=== PATIENT | female | born 1965 ===

== ENCOUNTER 2020-08-08 08:14 | Outpatient (REF) | payer OTHER, SELFPAY ==
--- NOTE | ~2020-08-08 | MM_ITS ---
EXAMINATION: MM SCREENING DIGITAL BREAST TOMOSYNTHESIS, BILATERAL CLINICAL INFORMATION: Age 55. Screening. Asymptomatic. Prior [id number] mammography from [place] approximately 7 years ago and currently unavailable. No known family history breast cancer. The lifetime risk of breast cancer based on the Tyrer-Cuzick Model is 12%. COMPARISON: None. TECHNIQUE: Digital breast tomosynthesis is performed in both the craniocaudal and mediolateral oblique views along with computer-aided detection (CAD). Synthesized 2D images are generated from the tomosynthesis. FINDINGS: The breasts are heterogeneously dense, which may obscure small masses (ACR BI-RADS breast composition Category c). Breast tissue composition borders on extremely dense. The axilla and skin contours are unremarkable. There are bilateral breast findings. Patient will be recalled for additional imaging. Left breast has a 4 cm smooth circumscribed mass anterior mid 9:00 position, likely a cyst. There is architectural distortion left 12:00 position mid depth with some associated calcifications. In addition, scattered regional calcifications are present anterior and inner left breast. Right breast has focal architectural changes mid upper outer quadrant. There are regional punctate calcifications lower inner quadrant. MM/MM tomosynthesis screening BI IMPRESSION: Left: -Architectural distortion mid 12:00 position with calcifications. -Mass 4 cm anteromedial breast, likely a cyst. -Regional calcifications. Right: -Architectural distortion upper outer quadrant. -Regional calcifications. ASSESSMENT: BI-RADS 0: Incomplete - Need Additional Imaging Evaluation RECOMMENDATION: 1. Additional views of the left breast: Spot mag CC, Spot Mag ML; additional mags to include regional calcifications. 2. Additional views of the right breast: Spot CC, Spot MG; additional mags to include regional calcifications. 3. Targeted bilateral breast ultrasound. 4. Radiology department staff will contact the patient for additional imaging. Radiology department will attempt to retrieve prior remote [place] of state mammography. This patient's information was entered into a reminder system with a target due date for their next mammogram.
== END 2020-08-08 08:15 | disposition home or self-care (01) ==
LOC: HO.MAMMO 08:14
PROVIDERS: Visit Provider Hospitalist
DX: Z12.31 Encounter for screening mammogram for malignant neoplasm of breast (principal)
CPT/HCPCS: 77063; 77067

== ENCOUNTER 2020-08-15 09:25 | Outpatient (REF) | payer OTHER, SELFPAY ==
[2020-08-15 10:30] LABS: Hematocrit 41.7 % (37-47); Hemoglobin 13.8 g/dl (12.0-16.0); Mean Corpuscular HGB Conc 33.1 g/dl (31.0-35.0); Mean Corpuscular Hemoglobin 27.7 pg (27.0-33.0); Mean Corpuscular Volume 83.6 fL (80-98); Mean Platelet Volume 9.8 fL (9.4-12.3); Platelet Count 286 X10*3/uL (160-400); Red Blood Count 4.99 X10*6/uL (4.20-5.50); Red Cell Distribution Width 12.6 % (11.0-16.0)
[2020-08-15 10:44] LABS: Alanine Aminotransferase 10 U/L (0-31); Albumin Level 4.4 g/dL (3.5-5.0); Alkaline Phosphatase 104 U/L (39-117); Anion Gap 11 (12-20); Aspartate Amino Transferase 13 U/L (5-31); Bilirubin Direct 0.2 mg/dL (0.0-0.5); Bilirubin Total 0.4 mg/dL (0.0-1.0); Blood Urea Nitrogen 8 mg/dL (9-16); Calcium 9.4 mg/dL (8.4-10.2); Carbon Dioxide 29 mmol/L (22-29); Chloride 106 mmol/L (96-108); Cholesterol 188 mg/dL; Estimated Glomerular Filt Rate > 60; Glucose Fasting 93 mg/dL (60-99); HDL Cholesterol 65 mg/dL; LDL Cholesterol Calculated 113 mg/dl; Potassium 4.5 mmol/L (3.3-5.1); Sodium 141 mmol/L (135-145); Total Protein 7.1 g/dL (6.5-8.0); Triglycerides 51 mg/dL
[2020-08-15 11:05] LABS: TSH reflex Free T4 0.59 uIU/mL (0.32-4.0)
[2020-08-17 03:37] LABS: HBc Num1 0.11 S/CO (0.00-0.79); Hepatitis B Core Antibody Nonreactive (Nonreactive)
[2020-08-17 03:45] LABS: HIV AB/AG Nonreactive (Nonreactive); HIV Num 1 0.06 S/CO (0.00-0.99); Syphilis Screen Nonreactive (Nonreactive)
== END 2020-08-15 09:26 | disposition home or self-care (01) ==
LOC: HO.LAB 09:25
PROVIDERS: Absent Provider Hospitalist; PCP Internal Medicine; Visit Provider Family Medicine
DX: Z00.00 Encounter for general adult medical examination without abnormal findings (principal); Z11.3 Encounter for screening for infections with a predominantly sexual mode of transmission; Z11.4 Encounter for screening for human immunodeficiency virus [HIV]
CPT/HCPCS: 36415; 80048; 80061; 80076; 84443; 85027; 86704; 86780; 87389